=== PATIENT | female | born 1940 | race African-American/Black ===

== ENCOUNTER 2019-11-13 13:41 | Inpatient (IN) | payer MEDICARE, BC ==
[~2019-11-13] VITALS: Ht 165.1 cm; Wt 59.0 kg
[2019-11-13 15:49] LABS: CHLORIDE 108 mEq/L (98-107)
[2019-11-13 15:57] LABS: BASOPHILS % 0.8 % (0.0-2.0); EOSINOPHILS % 1.1 % (0.0-5.0); HEMATOCRIT. 29.7 % (36.0-48.0); HEMOGLOBIN. 9.8 g/dL (12.0-16.0); LYMPHOCYTES % 8.8 % (20.0-50.0); MEAN CORPUSCULAR HEMOGLOBIN 29.2 pg (28.0-32.0); MEAN CORPUSCULAR VOLUME 88.7 fL (81.0-99.0); MEAN PLATELET VOLUME 8.1 fl (7.4-10.4); MONOCYTES % 6.7 % (2.0-8.0); NEUTROPHILS % 82.6 % (40.0-76.0); PLATELET 257 x1000/uL (130-400); RED BLOOD CELL COUNT 3.35 mill/uL (4.2-5.4); RED CELL DISTRIBUTION WIDTH 17.1 % (11.6-14.6)
[2019-11-13 16:08] LABS: CLARITY URINE CLEAR (CLEAR); COLOR URINE YELLOW (YELLOW); KETONES URINE NEGATIVE (NEGATIVE); LEUKOCYTE ESTERASE URINE 3+ (NEGATIVE); NITRITE URINE POSITIVE (NEGATIVE); OCCULT BLOOD URINE 1+ (NEGATIVE); PH URINE 8.5 (4.5-8.0); PROTEIN URINE TRACE (NEGATIVE); SPECIFIC GRAVITY URINE 1.015 (1.005-1.030)
[2019-11-13] MEDS ORDERED: CEFTRIAXONE 1 G PREMIX 50 ML IV ONE (16:45)
[2019-11-13] MEDS ORDERED: LEVETIRACETAM 500MG PREMIX 100 ML IV ONE (17:45)
[2019-11-13] MEDS ORDERED: DEXAMETHASONE 10 MG/ML VIAL IV ONE (18:00)
[2019-11-13] MEDS ORDERED: GADOBENATE DIMEGLUMINE 529 MG/ML 10ML IV ONE (18:08)
[2019-11-13] MEDS ORDERED: DEXT 5%/0.45% NACL 1000ML 1,000 ML IV SCH (21:14)
[2019-11-13] MEDS ORDERED: IPRATROPIUM/ALBUTEROL 0.5-3(2.5)MG/3ML NEB HHN PRN (21:15)
[2019-11-13] MEDS ORDERED: ONDANSETRON HCL 4MG/2ML INJ IV PRN (21:15)
[2019-11-13] MEDS ORDERED: DOCUSATE SODIUM 100MG CAPSULE PO PRN (21:15)
[2019-11-13] MEDS ORDERED: ACETAMINOPHEN 325MG TABLET PO PRN (21:15)
[2019-11-13] MEDS ORDERED: DIPHENHYDRAMINE 50MG/ML VIAL IV PRN (21:15)
[2019-11-13] MEDS ORDERED: HYDRALAZINE 20MG/ML VIAL IV PRN (21:15)
[2019-11-13] MEDS ORDERED: LORAZEPAM 2MG/ML CPJ IV PRN (21:15)
[2019-11-13] MEDS ORDERED: MORPHINE SULFATE 2 MG/ML CPJ (NOT FOR IM USE) IV PRN (21:15)
[2019-11-13] MEDS ORDERED: HYDROCODONE/ACETAMINOPHEN 10/325MG TABLET PO PRN (21:15)
[2019-11-13] MEDS ORDERED: GUAIFENESIN 200MG/10ML SUGAR FREE UDC PO PRN (21:15)
[2019-11-13] MEDS ORDERED: CLONIDINE 0.1MG TABLET PO PRN (21:15)
[2019-11-13] MEDS ORDERED: MAGNESIUM/ALUMINUM HYDROXIDE/SIMETHICONE 30ML UDC PO PRN (21:15)
[2019-11-13] MEDS ORDERED: NICARDIPINE 100 MG in SODIUM CHLORIDE 0.9% 60 ML IV PRN (21:45)
[2019-11-13] MEDS ORDERED: LEVOFLOXACIN 500MG PREMIX 100 ML IV NR (21:45)
[2019-11-14] VITALS (77 sets, daily range): BP systolic 109–163; BP diastolic 49–114
[2019-11-14 00:27] LABS: CREATINE KINASE MB FRACTION 1.5 ng/mL (0.5-3.6)
[2019-11-14] MEDS: DEXT 5%/LACTATED RINGERS 1,000 ML IV SCH ×2 (04:16→22:51)
[2019-11-14] MEDS: SODIUM CHLORIDE 0.9% INJ 3ML FLUSH IVF SCH ×3 (05:22→21:47)
[2019-11-14] MEDS: DEXAMETHASONE 4MG/ML 1ML VIAL IV SCH ×3 (05:37→21:47)
[2019-11-14 05:43] LABS: HEMATOCRIT. 34.4 % (36.0-48.0); HEMOGLOBIN. 11.4 g/dL (12.0-16.0); MEAN CORPUSCULAR HEMOGLOBIN 29.3 pg (28.0-32.0); MEAN CORPUSCULAR VOLUME 88.1 fL (81.0-99.0); MEAN PLATELET VOLUME 7.9 fl (7.4-10.4); PLATELET 253 x1000/uL (130-400); RED CELL DISTRIBUTION WIDTH 17.2 % (11.6-14.6)
[2019-11-14 05:46] LABS: CHLORIDE 105 mEq/L (98-107)
[2019-11-14 05:58] LABS: CREATINE KINASE 62 IU/L (26-192)
[2019-11-14 06:02] LABS: CREATINE KINASE MB FRACTION 1.3 ng/mL (0.5-3.6)
[2019-11-14] MEDS: NICARDIPINE 100 MG in SODIUM CHLORIDE 0.9% 60 ML IV PRN ×2 (07:00→17:01)
[2019-11-14] MEDS ORDERED: NICARDIPINE 100 MG in SODIUM CHLORIDE 0.9% 60 ML IV PRN (09:00)
[2019-11-14 09:05] LABS: T4 FREE 1.22 ng/dL (0.76-1.46)
[2019-11-14] MEDS: LEVETIRACETAM 250 MG in SODIUM CHLORIDE 0.9% 100 ML IV SCH ×2 (09:08→21:47)
[2019-11-14] MEDS ORDERED: FLUCONAZOLE 100MG TABLET PO NR (11:00)
[2019-11-14 15:16] LABS: PLATELET ESTIMATE NORMAL
[2019-11-14] MEDS: CEFTRIAXONE 2 G in DEXTROSE 5% WATER 50 ML IV SCH ×2 (15:27→22:51)
[2019-11-14 17:15] LABS: CREATINE KINASE 65 IU/L (26-192)
[2019-11-14 17:16] LABS: CREATINE KINASE MB FRACTION 1.2 ng/mL (0.5-3.6)
[2019-11-14] MEDS ORDERED: LEVOFLOXACIN 250MG PREMIX 50 ML IV SCH (21:00)
[2019-11-14 23:21] LABS: CREATINE KINASE 74 IU/L (26-192)
[2019-11-14 23:22] LABS: CREATINE KINASE MB FRACTION 1.6 ng/mL (0.5-3.6)
[2019-11-15] VITALS (68 sets, daily range): BP systolic 114–147; BP diastolic 54–91
[2019-11-15] MEDS: DEXAMETHASONE 4MG/ML 1ML VIAL IV SCH (05:04)
[2019-11-15] MEDS: SODIUM CHLORIDE 0.9% INJ 3ML FLUSH IVF SCH ×3 (05:04→21:54)
[2019-11-15 05:27] LABS: HEMATOCRIT. 33.4 % (36.0-48.0); HEMOGLOBIN. 11.2 g/dL (12.0-16.0); MEAN CORPUSCULAR HEMOGLOBIN 29.3 pg (28.0-32.0); MEAN CORPUSCULAR VOLUME 87.4 fL (81.0-99.0); MEAN PLATELET VOLUME 7.9 fl (7.4-10.4); PLATELET 255 x1000/uL (130-400); RED BLOOD CELL COUNT 3.82 mill/uL (4.2-5.4); RED CELL DISTRIBUTION WIDTH 16.9 % (11.6-14.6)
[2019-11-15 05:51] LABS: CHLORIDE 106 mEq/L (98-107)
[2019-11-15 06:04] LABS: CREATINE KINASE 79 IU/L (26-192)
[2019-11-15 06:06] LABS: CREATINE KINASE MB FRACTION 1.5 ng/mL (0.5-3.6)
[2019-11-15] MEDS: LEVETIRACETAM 250 MG in SODIUM CHLORIDE 0.9% 100 ML IV SCH ×2 (09:12→21:00)
[2019-11-15] MEDS: NICARDIPINE 100 MG in SODIUM CHLORIDE 0.9% 60 ML IV PRN (09:13)
[2019-11-15 09:50] LABS: PLATELET ESTIMATE NORMAL
[2019-11-15] MEDS: CEFTRIAXONE 2 G in DEXTROSE 5% WATER 50 ML IV SCH ×2 (10:55→22:52)
[2019-11-15] MEDS ORDERED: FLUCONAZOLE 100MG/50ML in BAG IV NR (15:00)
[2019-11-15] MEDS ORDERED: CLONIDINE HCL 0.1MG/24HR PATCH TD SCH (17:00)
[2019-11-15] MEDS ORDERED: DOCU250C14 PO (17:04)
[2019-11-15] MEDS ORDERED: ATOR-2 PO (17:04)
[2019-11-15] MEDS ORDERED: DOCU50LI PO (17:04)
[2019-11-15] MEDS ORDERED: POLY17PO3 PO (17:04)
[2019-11-15] MEDS ORDERED: METO-539 PO (17:04)
[2019-11-15] MEDS ORDERED: IRBE300T17 PO (17:04)
[2019-11-15] MEDS ORDERED: NIFE60TA78 MT (17:04)
[2019-11-15] MEDS ORDERED: PANT40TA4 PO (17:04)
[2019-11-15] MEDS: DEXT 5%/LACTATED RINGERS 1,000 ML IV SCH (20:03)
[2019-11-16] VITALS: BP 133/65
[2019-11-16 04:00] VITALS: BP 155/81
[2019-11-16] MEDS: SODIUM CHLORIDE 0.9% INJ 3ML FLUSH IVF SCH ×3 (05:40→21:04)
[2019-11-16 07:49] LABS: BASOPHILS % 0.1 % (0.0-2.0); HEMATOCRIT. 29.9 % (36.0-48.0); HEMOGLOBIN. 9.8 g/dL (12.0-16.0); LYMPHOCYTES % 8.9 % (20.0-50.0); MEAN CORPUSCULAR HEMOGLOBIN 28.9 pg (28.0-32.0); MEAN PLATELET VOLUME 7.9 fl (7.4-10.4); MONOCYTES % 9.9 % (2.0-8.0); NEUTROPHILS % 81.1 % (40.0-76.0); PLATELET 235 x1000/uL (130-400); RED CELL DISTRIBUTION WIDTH 17.1 % (11.6-14.6)
[2019-11-16 08:00] VITALS: BP 157/65
[2019-11-16 08:01] LABS: CHLORIDE 109 mEq/L (98-107)
[2019-11-16] MEDS: CEFTRIAXONE 2 G in DEXTROSE 5% WATER 50 ML IV SCH ×2 (10:50→22:10)
[2019-11-16] MEDS: LEVETIRACETAM 250 MG in SODIUM CHLORIDE 0.9% 100 ML IV SCH ×2 (11:13→20:52)
[2019-11-16] MEDS ORDERED: POTASSIUM CHLORIDE 20MEQ/PACKET PO SCH (11:15)
[2019-11-16 12:00] VITALS: BP 180/90
[2019-11-16] MEDS ORDERED: FLUCONAZOLE 100MG TABLET PO ONE (13:30)
[2019-11-16 16:00] VITALS: BP 156/81
[2019-11-16] MEDS: DEXT 5%/LACTATED RINGERS 1,000 ML IV SCH (18:27)
[2019-11-16 20:00] VITALS: BP 117/63
[2019-11-16] MEDS: HYDRALAZINE HCL 50MG TABLET PO SCH (21:04)
[2019-11-17] VITALS: BP 119/78
[2019-11-17 04:00] VITALS: BP 142/72
[2019-11-17 05:09] LABS: BASOPHILS % 0.7 % (0.0-2.0); EOSINOPHILS % 0.4 % (0.0-5.0); HEMATOCRIT. 30.8 % (36.0-48.0); HEMOGLOBIN. 10.1 g/dL (12.0-16.0); LYMPHOCYTES % 21.9 % (20.0-50.0); MEAN CORPUSCULAR HEMOGLOBIN 29.1 pg (28.0-32.0); MEAN CORPUSCULAR VOLUME 88.3 fL (81.0-99.0); MONOCYTES % 12.3 % (2.0-8.0); NEUTROPHILS % 64.7 % (40.0-76.0); PLATELET 217 x1000/uL (130-400); RED BLOOD CELL COUNT 3.48 mill/uL (4.2-5.4)
[2019-11-17] MEDS: SODIUM CHLORIDE 0.9% INJ 3ML FLUSH IVF SCH ×2 (05:36→13:56)
[2019-11-17 05:57] LABS: CHLORIDE 108 mEq/L (98-107)
[2019-11-17] MEDS: HYDRALAZINE HCL 50MG TABLET PO SCH ×3 (06:19→22:19)
[2019-11-17 08:00] VITALS: BP 161/71
[2019-11-17] MEDS: LEVETIRACETAM 250 MG in SODIUM CHLORIDE 0.9% 100 ML IV SCH ×2 (08:48→22:18)
[2019-11-17] MEDS: CEFTRIAXONE 2 G in DEXTROSE 5% WATER 50 ML IV SCH ×2 (11:57→22:18)
[2019-11-17] MEDS: DEXT 5%/LACTATED RINGERS 1,000 ML IV SCH (11:58)
[2019-11-17 12:00] VITALS: BP 168/69
[2019-11-17 16:00] VITALS: BP 141/72
[2019-11-17 20:00] VITALS: BP 111/64
[2019-11-18] VITALS (7 sets, daily range): BP systolic 123–166; BP diastolic 60–84
[2019-11-18] MEDS: SODIUM CHLORIDE 0.9% INJ 3ML FLUSH IVF SCH ×4 (06:15→21:26)
[2019-11-18] MEDS: HYDRALAZINE HCL 50MG TABLET PO SCH ×3 (06:30→21:26)
[2019-11-18] MEDS: DEXT 5%/LACTATED RINGERS 1,000 ML IV SCH (07:30)
[2019-11-18] MEDS: LEVETIRACETAM 250 MG in SODIUM CHLORIDE 0.9% 100 ML IV SCH ×2 (09:24→21:26)
[2019-11-18] MEDS: CEFTRIAXONE 2 G in DEXTROSE 5% WATER 50 ML IV SCH ×2 (13:27→22:23)
[2019-11-18 16:53] LABS: CHLORIDE 106 mEq/L (98-107)
[2019-11-18] MEDS ORDERED: HYDRALAZINE 10 MG in SODIUM CHLORIDE 0.9% 49.5 ML IV PRN (19:00)
[2019-11-19] VITALS: BP 150/66
[2019-11-19] MEDS: DEXT 5%/LACTATED RINGERS 1,000 ML IV SCH (03:15)
[2019-11-19 04:00] VITALS: BP 140/86
[2019-11-19] MEDS: SODIUM CHLORIDE 0.9% INJ 3ML FLUSH IVF SCH ×3 (05:34→21:00)
[2019-11-19] MEDS: HYDRALAZINE HCL 50MG TABLET PO SCH ×3 (05:48→21:00)
[2019-11-19 07:26] LABS: BASOPHILS % 0.4 % (0.0-2.0); EOSINOPHILS % 3.2 % (0.0-5.0); HEMATOCRIT. 33.5 % (36.0-48.0); HEMOGLOBIN. 11.1 g/dL (12.0-16.0); LYMPHOCYTES % 22.5 % (20.0-50.0); MEAN CORPUSCULAR HEMOGLOBIN 29.2 pg (28.0-32.0); MEAN CORPUSCULAR VOLUME 88.1 fL (81.0-99.0); MEAN PLATELET VOLUME 8.2 fl (7.4-10.4); MONOCYTES % 13.3 % (2.0-8.0); NEUTROPHILS % 60.6 % (40.0-76.0); PLATELET 266 x1000/uL (130-400); RED CELL DISTRIBUTION WIDTH 17.1 % (11.6-14.6)
[2019-11-19 08:00] VITALS: BP 148/79
[2019-11-19] MEDS: LEVETIRACETAM 250 MG in SODIUM CHLORIDE 0.9% 100 ML IV SCH ×2 (09:07→21:31)
[2019-11-19 10:19] LABS: CHLORIDE 108 mEq/L (98-107)
[2019-11-19] MEDS: CEFTRIAXONE 2 G in DEXTROSE 5% WATER 50 ML IV SCH ×2 (11:18→23:14)
[2019-11-19 12:00] VITALS: BP 125/53
[2019-11-19 16:00] VITALS: BP 157/72
[2019-11-19 20:12] VITALS: BP 94/70
[2019-11-20] VITALS: BP 140/68
[2019-11-20 04:00] VITALS: BP 154/66
[2019-11-20] MEDS: SODIUM CHLORIDE 0.9% INJ 3ML FLUSH IVF SCH ×2 (05:10→14:39)
[2019-11-20] MEDS: HYDRALAZINE HCL 50MG TABLET PO SCH ×2 (05:11→14:38)
[2019-11-20] MEDS: LEVETIRACETAM 250 MG in SODIUM CHLORIDE 0.9% 100 ML IV SCH (09:45)
[2019-11-20] MEDS: CEFTRIAXONE 2 G in DEXTROSE 5% WATER 50 ML IV SCH (11:58)
[2019-11-20 16:10] VITALS: BP 150/36
[2019-11-30] MEDS ORDERED: ASCORBIC ACID 500 MG TABLET PO SCH (21:00)
[2019-11-30] MEDS ORDERED: ZINC SULFATE 220 MG ( 50 ) CAPSULE PO SCH (21:00)
== END 2019-11-20 18:28 | disposition hospice, home (50) | DRG 871 ==
LOC: ER 13:41 → MICUSO 17:36 → ENRESERV 11-14 01:59 → 8WST 11-15 22:11 → 6EST 11-18 05:15
PROVIDERS: ADMIT Internal Medicine; ATTEND Internal Medicine
DX: A41.52 Sepsis due to Pseudomonas (principal); G93.6 Cerebral edema; N39.0 Urinary tract infection, site not specified; E46 Unspecified protein-calorie malnutrition; G93.40 Encephalopathy, unspecified; I62.9 Nontraumatic intracranial hemorrhage, unspecified; Z16.21 Resistance to vancomycin; I50.30 Unspecified diastolic (congestive) heart failure; I82.413 Acute embolism and thrombosis of femoral vein, bilateral; I82.431 Acute embolism and thrombosis of right popliteal vein; E11.9 Type 2 diabetes mellitus without complications; F03.90 Unspecified dementia, unspecified severity, without behavioral disturbance, psychotic disturbance, mood disturbance, and anxiety; B96.5 Pseudomonas (aeruginosa) (mallei) (pseudomallei) as the cause of diseases classified elsewhere; B95.2 Enterococcus as the cause of diseases classified elsewhere; B96.89 Other specified bacterial agents as the cause of diseases classified elsewhere; I11.0 Hypertensive heart disease with heart failure; G93.89 Other specified disorders of brain; E78.5 Hyperlipidemia, unspecified; D64.9 Anemia, unspecified; D72.819 Decreased white blood cell count, unspecified; Z79.899 Other long term (current) drug therapy; Z86.73 Personal history of transient ischemic attack (TIA), and cerebral infarction without residual deficits; Z95.828 Presence of other vascular implants and grafts; Z68.21 Body mass index [BMI] 21.0-21.9, adult
CPT/HCPCS: 36415; 70553; 71045; 80048; 80053; 80061; 81003; 82550; 82553; 83036; 83880; 84132; 84439; 84443; 84484; 85025; 85379; 87077; 87186; 92610; 93005; 93306; 93970; 97162; 97166; 99291; A9577; J0696; J1100; J1450; J1953; J1956; J3490; J7050; J7060; J7121; A4315

== ENCOUNTER 2020-03-06 11:53 | Inpatient (IN) | payer MEDICARE, BC ==
[~2020-03-06] VITALS: Ht 154.9 cm; Wt 61.2 kg
[2020-03-06] VITALS (15 sets, daily range): BP systolic 97–156; BP diastolic 50–123
[~2020-03-06 11:53] MED LIST: ATOR-2 PO; DOCU250C14 PO; DOCU50LI PO; IRBE300T17 PO; METO-539 PO; NIFE60TA78 MT; PANT40TA4 PO; POLY17PO3 PO
[2020-03-06 12:25] LABS: BASOPHILS % 0.6 % (0.0-2.0); EOSINOPHILS % 3.2 % (0.0-5.0); HEMATOCRIT. 39.8 % (36.0-48.0); HEMOGLOBIN. 13.5 g/dL (12.0-16.0); LYMPHOCYTES % 16.2 % (20.0-50.0); MEAN PLATELET VOLUME 9.5 fl (7.4-10.4); MONOCYTES % 6.5 % (2.0-8.0); NEUTROPHILS % 73.5 % (40.0-76.0); PLATELET 248 x1000/uL (130-400); RED BLOOD CELL COUNT 4.23 mill/uL (4.2-5.4)
[2020-03-06 12:31] LABS: CHLORIDE 107 mEq/L (98-107)
[2020-03-06 12:32] LABS: PROTHROMBIN TIME 10.7 sec (9.6-11.0)
[2020-03-06 12:35] LABS: ETHANOL BLOOD < 10 mg/dL
[2020-03-06 12:38] LABS: LDL CHOLESTEROL 37 mg/dL (5-100)
[2020-03-06] MEDS ORDERED: IOHEXOL-350 100 ML BOTTLE ONE ×2 (12:43→17:14)
[2020-03-06] MEDS ORDERED: LEVETIRACETAM 1000MG/100ML 100 ML IV ONE (13:00)
[2020-03-06] MEDS ORDERED: HYDRALAZINE 20MG/ML VIAL IV NR (14:15)
[2020-03-06] MEDS ORDERED: NICARDIPINE 50 MG in SODIUM CHLORIDE 0.9% 230 ML IV PRN (14:15)
[2020-03-06 14:24] LABS: CLARITY URINE CLEAR (CLEAR); COLOR URINE YELLOW (YELLOW); KETONES URINE NEGATIVE (NEGATIVE); LEUKOCYTE ESTERASE URINE NEGATIVE (NEGATIVE); NITRITE URINE NEGATIVE (NEGATIVE); OCCULT BLOOD URINE NEGATIVE (NEGATIVE); PH URINE 6.5 (4.5-8.0); PROTEIN URINE NEGATIVE (NEGATIVE); SPECIFIC GRAVITY URINE 1.037 (1.005-1.030)
[2020-03-06 14:45] LABS: *AMPHETAMINES SCREEN URINE NEGATIVE (NEGATIVE); *BARBITURATES SCREEN URINE NEGATIVE (NEGATIVE); *BENZODIAZEPINES SCREEN URINE NEGATIVE (NEGATIVE); *COCAINE SCREEN URINE NEGATIVE (NEGATIVE)
[2020-03-06 14:46] LABS: CANNABINOID URINE SCREEN NEGATIVE (NEGATIVE); METHADONE URINE SCREEN NEGATIVE (NEGATIVE); OPIATES URINE SCREEN NEGATIVE (NEGATIVE); PHENCYCLIDINE URINE SCREEN NEGATIVE (NEGATIVE)
[2020-03-06] MEDS ORDERED: ONDANSETRON HCL 4MG/2ML INJ IV PRN (17:00)
[2020-03-06] MEDS: DEXT 5%/LACTATED RINGERS 1,000 ML IV SCH (20:00)
[2020-03-06] MEDS ORDERED: NICARDIPINE 100 MG in SODIUM CHLORIDE 0.9% 60 ML IV PRN (20:15)
[2020-03-06] MEDS ORDERED: LEVETIRACETAM 500MG PREMIX 100 ML IV SCH (21:00)
[2020-03-06] MEDS: LEVETIRACETAM 250 MG in SODIUM CHLORIDE 0.9% 100 ML IV SCH (22:10)
[2020-03-07] VITALS (96 sets, daily range): BP systolic 92–148; BP diastolic 43–92
[2020-03-07 07:14] LABS: BASOPHILS % 0.4 % (0.0-2.0); EOSINOPHILS % 0.1 % (0.0-5.0); HEMATOCRIT. 34.3 % (36.0-48.0); HEMOGLOBIN. 11.7 g/dL (12.0-16.0); LYMPHOCYTES % 9.1 % (20.0-50.0); MEAN CORPUSCULAR HEMOGLOBIN 31.8 pg (28.0-32.0); MEAN CORPUSCULAR VOLUME 92.8 fL (81.0-99.0); MEAN PLATELET VOLUME 9.4 fl (7.4-10.4); MONOCYTES % 5.8 % (2.0-8.0); NEUTROPHILS % 84.6 % (40.0-76.0); PLATELET 194 x1000/uL (130-400); RED BLOOD CELL COUNT 3.69 mill/uL (4.2-5.4); RED CELL DISTRIBUTION WIDTH 15.5 % (11.6-14.6)
[2020-03-07 07:22] LABS: CHLORIDE 108 mEq/L (98-107)
[2020-03-07] MEDS: LEVETIRACETAM 250 MG in SODIUM CHLORIDE 0.9% 100 ML IV SCH ×2 (09:10→21:28)
[2020-03-07] MEDS ORDERED: PNEUMOCOCCAL 23-VAL P-SAC VAC 0.5 ML IM ONE (12:00)
[2020-03-07] MEDS ORDERED: AMLODIPINE 5MG TABLET PO NR (14:09)
[2020-03-07] MEDS: DEXT 5%/LACTATED RINGERS 1,000 ML IV SCH (14:22)
[2020-03-07] MEDS: AMLODIPINE 5MG TABLET PO SCH (20:31)
[2020-03-08] VITALS (74 sets, daily range): BP systolic 105–161; BP diastolic 59–105
[2020-03-08] MEDS: DEXT 5%/LACTATED RINGERS 1,000 ML IV SCH ×2 (03:42→19:54)
[2020-03-08 06:05] LABS: BASOPHILS % 0.4 % (0.0-2.0); EOSINOPHILS % 3.6 % (0.0-5.0); HEMATOCRIT. 33.6 % (36.0-48.0); HEMOGLOBIN. 11.6 g/dL (12.0-16.0); LYMPHOCYTES % 14.1 % (20.0-50.0); MEAN CORPUSCULAR HEMOGLOBIN 32.2 pg (28.0-32.0); MEAN CORPUSCULAR VOLUME 93.6 fL (81.0-99.0); MEAN PLATELET VOLUME 8.8 fl (7.4-10.4); MONOCYTES % 10.1 % (2.0-8.0); NEUTROPHILS % 71.8 % (40.0-76.0); PLATELET 196 x1000/uL (130-400); RED BLOOD CELL COUNT 3.59 mill/uL (4.2-5.4); RED CELL DISTRIBUTION WIDTH 15.6 % (11.6-14.6)
[2020-03-08 06:08] LABS: CHLORIDE 110 mEq/L (98-107)
[2020-03-08] MEDS: LEVETIRACETAM 250 MG in SODIUM CHLORIDE 0.9% 100 ML IV SCH ×2 (08:43→21:23)
[2020-03-08] MEDS: AMLODIPINE 5MG TABLET PO SCH ×2 (08:44→21:24)
[2020-03-08] MEDS ORDERED: POTASSIUM CHLORIDE 20MEQ TABLET SR PO NR (11:45)
[2020-03-08] MEDS: MORPHINE SULFATE 2 MG/ML CPJ (NOT FOR IM USE) IV PRN (22:33)
[2020-03-09] VITALS (84 sets, daily range): BP systolic 105–166; BP diastolic 55–104
[2020-03-09] MEDS: ASCORBIC ACID 500 MG TABLET PO SCH (09:41)
[2020-03-09] MEDS: AMLODIPINE 5MG TABLET PO SCH ×2 (09:41→20:25)
[2020-03-09] MEDS: ZINC SULFATE 220 MG ( 50 ) CAPSULE PO SCH (09:41)
[2020-03-09] MEDS: LEVETIRACETAM 250 MG in SODIUM CHLORIDE 0.9% 100 ML IV SCH ×2 (10:53→20:59)
[2020-03-09] MEDS ORDERED: AMLO5TAB88 MT (14:36)
[2020-03-09] MEDS ORDERED: KEPP500 MT (14:36)
[2020-03-09] MEDS: CLONIDINE 0.1MG TABLET PO PRN ×2 (18:02→18:05)
[2020-03-09] MEDS: DEXT 5%/LACTATED RINGERS 1,000 ML IV SCH (18:02)
[2020-03-09] MEDS ORDERED: POTASSIUM CHLORIDE INJ 40 MEQ in DEXT 5% WATER 500 ML IV NR (22:00)
[2020-03-10] VITALS (8 sets, daily range): BP systolic 129–175; BP diastolic 70–105
[2020-03-10] MEDS: DEXT 5%/LACTATED RINGERS 1,000 ML IV SCH (05:11)
[2020-03-10] MEDS: MORPHINE SULFATE 2 MG/ML CPJ (NOT FOR IM USE) IV PRN (05:21)
[2020-03-10] MEDS: AMLODIPINE 5MG TABLET PO SCH ×2 (08:24→21:45)
[2020-03-10] MEDS: ASCORBIC ACID 500 MG TABLET PO SCH (08:24)
[2020-03-10] MEDS: ZINC SULFATE 220 MG ( 50 ) CAPSULE PO SCH (08:24)
[2020-03-10] MEDS: LEVETIRACETAM 250 MG in SODIUM CHLORIDE 0.9% 100 ML IV SCH ×2 (10:29→21:45)
[2020-03-10] MEDS ORDERED: LOSARTAN POTASSIUM 50 MG TABLET PO SCH (10:45)
[2020-03-10] MEDS: LOSARTAN POTASSIUM 50 MG TABLET PO SCH (21:45)
[2020-03-11] VITALS: BP 157/85
[2020-03-11] MEDS: DEXT 5%/LACTATED RINGERS 1,000 ML IV SCH (00:16)
[2020-03-11 04:00] VITALS: BP 125/72
[2020-03-11 08:00] VITALS: BP 129/79
[2020-03-11] MEDS: ZINC SULFATE 220 MG ( 50 ) CAPSULE PO SCH ×2 (08:41→08:54)
[2020-03-11] MEDS: AMLODIPINE 5MG TABLET PO SCH ×2 (08:41→08:53)
[2020-03-11] MEDS: ASCORBIC ACID 500 MG TABLET PO SCH ×2 (08:41→08:54)
[2020-03-11] MEDS: LOSARTAN POTASSIUM 50 MG TABLET PO SCH ×2 (08:41→08:53)
[2020-03-11] MEDS: LEVETIRACETAM 250 MG in SODIUM CHLORIDE 0.9% 100 ML IV SCH (09:30)
== END 2020-03-11 13:50 | disposition hospice, home (50) | DRG 65 ==
LOC: ER 11:59 → MICUSO 12:58 → 5EST 19:36 → MICUNO 03-09 06:05 → 5WST 03-09 22:18
PROVIDERS: ADMIT Internal Medicine; ATTEND Internal Medicine
DX: I61.9 Nontraumatic intracerebral hemorrhage, unspecified (principal); G93.40 Encephalopathy, unspecified; G81.94 Hemiplegia, unspecified affecting left nondominant side; R47.01 Aphasia; Z66 Do not resuscitate; G40.909 Epilepsy, unspecified, not intractable, without status epilepticus; F03.90 Unspecified dementia, unspecified severity, without behavioral disturbance, psychotic disturbance, mood disturbance, and anxiety; I10 Essential (primary) hypertension; R47.81 Slurred speech; R29.715 NIHSS score 15; G93.89 Other specified disorders of brain; Z86.73 Personal history of transient ischemic attack (TIA), and cerebral infarction without residual deficits; Z88.0 Allergy status to penicillin; Z79.899 Other long term (current) drug therapy
CPT/HCPCS: 36415; 70496; 70498; 70551; 71045; 80048; 80053; 80305; 80320; 81003; 82962; 83721; 84145; 84484; 85025; 90732; 92610; 93005; 97162; 99291; J0360; J1953; J2270; J3480; J3490; J7050; J7060; J7121; Q9967; G0480